=== PATIENT | female | born 1975 | race Caucasian/White ===

== ENCOUNTER 2017-03-24 16:15 | Inpatient (IN) | payer OTHER ==
[~2017-03-24] VITALS: Ht 165.1 cm; Wt 124.2 kg
[~2017-03-24 16:15] MED LIST: PREN-39 PO
--- NOTE | 2017-03-24 16:50 | NSTRPT ---
NST Information Datetime Report Generated by CPN: 03/24/2017 16:49 Datetime: 03/24/2017 14:42 NST Information EGA: 36.2 Test Number: 8 Time on Monitor: 03/24/2017 15:06 Time off Monitor: 03/24/2017 15:43 NST Duration (Min): 37 Reason for NST: Diabetes Mellitus; Other Reason for NST Other: A2DM Test and Monitor Explained: Monitor Explained; Test Explained; Verbalized Understanding Pulse: 78 Resp: 17 SBP: 114 DBP: 55 Test Evaluation NST Interventions: Reposition Patient Patient States Movement: Present Contraction Frequency: q3-5min FHR Baseline : 135 Variability: Moderate 6-25bpm Accelerations: 15X15 Decelerations: None FHR Category: Category I NST Results: Reactive Comments: pt to u/s, DONALD 12.9cm, cephalic FBS 90 Dr. Gomez called. new orders received. Send pt to OB-TRG for contractions. pain 02/27. 1 545- Pt to OB-TRG as ordered. Follow up NST appt. given. kick count instructions reviewed. pt states understanding. Electronically Signed By E-Signature: with User ID: [id number], Addendum/Amendment: Reactive FHTs Datetime: 03/21/2017 14:29 NST Information EGA: 35.6 NST Duration (Min): 22 Datetime: 03/17/2017 14:50 NST Information EGA: 35.2 NST Duration (Min): 30 Datetime: 03/14/2017 14:55 NST Information EGA: 34.6 NST Duration (Min): 28 Datetime: 03/10/2017 14:28 NST Information EGA: 34.2 NST Duration (Min): 30 Datetime: 03/07/2017 15:15 NST Information EGA: 33.6 NST Duration (Min): 30 Datetime: 03/03/2017 13:30 NST Information EGA: 33.2 NST Duration (Min): 21 Datetime: 02/28/2017 15:06 NST Information EGA: 32.6 Datetime: 02/28/2017 14:45 NST Duration (Min): 40
[2017-03-24 17:39] VITALS: BP 138/78; PULSE 78; RESP 18
[2017-03-24 17:40] VITALS: Ht 165.1 cm; Wt 124.2 kg
[2017-03-24] MEDS ORDERED: LACTATED RINGER'S 1,000 ML IV ONE (18:00)
[2017-03-24] MEDS ORDERED: FOLI1POW MC (19:09)
[2017-03-24] MEDS ORDERED: FERR325C PO (19:09)
[2017-03-24] MEDS ORDERED: CALC600T5 PO (19:09)
[2017-03-24] MEDS ORDERED: MTF1000T PO (19:12)
[2017-03-24] MEDS ORDERED: MISOPROSTOL 200 MCG TAB PR PRN (21:00)
[2017-03-24] MEDS ORDERED: CEFAZOLIN 2 GM/50 ML (PMX) 50 ML IV SCH (21:00)
[2017-03-24] MEDS ORDERED: METHYLERGONOVINE 0.2 MG INJ IM PRN (21:00)
[2017-03-24] MEDS ORDERED: CARBOPROST 250 MCG INJ IM PRN (21:00)
[2017-03-24] MEDS ORDERED: OXYTOCIN 30 UNITS/LR 500 ML IV SCH (21:00)
[2017-03-24] MEDS ORDERED: OXYTOCIN 30 UNITS/LR 500 ML IV PRN (21:00)
[2017-03-24] MEDS: LACTATED RINGER'S 1,000 ML IV SCH (21:18)
[2017-03-24 22:44] LABS: ADD SCAN DIFF NO
[2017-03-24 22:46] LABS: BASOPHILS % 0.4 % (0.0-2.0); EOSINOPHILS # 0.1 10^3/ul (0.0-0.5); EOSINOPHILS % 1.3 % (0.0-7.0); HEMATOCRIT 34.8 % (37.0-47.0); HEMOGLOBIN 11.6 g/dl (12.0-16.0); LYMPHOCYTES # 2.2 10^3/ul (0.8-2.9); LYMPHOCYTES % 22.5 % (15.0-51.0); MEAN CORPUSCULAR HEMOGLOBIN 30.4 pg (29.0-33.0); MEAN CORPUSCULAR HGB CONC 33.3 g/dl (32.0-37.0); MEAN CORPUSCULAR VOLUME 91.3 fl (82.0-101.0); MEAN PLATELET VOLUME 9.9 fl (7.4-10.4); MONOCYTE # 0.5 10^3/ul (0.3-0.9); NEUTROPHIL # 6.9 10^3/ul (1.6-7.5); NEUTROPHILS % 70.3 % (39.0-77.0); PLATELET COUNT 289 10^3/UL (140-415); RED BLOOD COUNT 3.81 10^6/ul (4.20-5.40); RED CELL DISTRIBUTION WIDTH 15.1 % (11.5-14.5); WHITE BLOOD COUNT 9.8 10^3/ul (4.8-10.8)
[2017-03-24 23:22] LABS: INR 0.95; PROTIME 12.7 Sec (12.2-14.2)
--- NOTE | 2017-03-24 23:22 | TRIAGE ---
OB Triage Datetime Report Generated by CPN: 03/24/2017 23:22 Datetime: 03/24/2017 21:10 Assessment Type: Admission Assessment Vaginal Bleeding: None Maternal Assessment Level of Consciousness: Fully Conscious DTR's/Clonus: DTRs 2+; No Clonus Headache: Denies Blurred Vision: No Respiratory Effort: Unlabored; Regular Rhythm; Equal Expansion Nausea/Vomiting: Denies RUQ Epigastric Pain: Denies Lower Extremities Edema: None (Annotations: OBESE PT.) Upper Extremities Edema: None Facial Edema: None Fall Risk Assessment History of Falling: (0) No Secondary Diagnosis: (0) No Ambulatory Aid: (0) Bedrest/Nurse Assist IV Therapy: (0) No Gait: (0) Normal/Bedrest/Immobile Mental Status: (0) Oriented to Own Ability Fall Score: 0 Fall Risk Score Definition: No Risk: No action required Pain Assessment Pain Scale: 2 Pain Presence: Intermittent Pain Type: Cramping Pain Location: Abdomen Pain Goal: 3 Membrane Status: Intact Datetime: 03/24/2017 18:40 Labor Evaluation Frequency: 1-3.5 Monitor Mode: External Duration (sec)2399: 40-120 Quality: Moderate Pattern: Normal: <= 5 Contractions in 10 Minutes Resting Tone [place]: Relaxed Heart Rate FHR Baseline Rate: 140 Monitor Mode: External US FHR Baseline Changes: No Baseline Change Variability: Moderate 6-25 bpm Accelerations: 15X15 Decelerations: None Category: Category I Pain Assessment Pain Scale: 2 Pain Presence: Intermittent Pain Type: Contraction; Pressure Pain Location: Abdomen; Back Pain Goal: 0 Pain Relief Measures: Comfort Measures Datetime: 03/24/2017 17:50 Vaginal Exam Dilatation (cms): 0.0 Effacement (%): 0 Station: -4 Exam By: Sruthi RN Datetime: 03/24/2017 17:40 Labor Evaluation Frequency: 1-4 Monitor Mode: External Duration (sec)2399: 40-120 Quality: Moderate Pattern: Normal: <= 5 Contractions in 10 Minutes Resting Tone [place]: Relaxed Heart Rate FHR Baseline Rate: 140 Monitor Mode: External US FHR Baseline Changes: No Baseline Change Variability: Moderate 6-25 bpm Accelerations: 15X15 Decelerations: None Category: Category I Pain Assessment Pain Scale: 2 Pain Presence: Intermittent Pain Type: Contraction; Pressure Pain Location: Abdomen; Back Pain Goal: 0 Pain Relief Measures: Comfort Measures Datetime: 03/24/2017 17:35 Time of Arrival: 03/24/2017 16:10 EGA: 36.2 Arrived By: Ambulatory Arrived From: Office Chief Complaint: UC Movement: Present Contractions: Regular Time Contractions Began: 03/24/2017 06:00 Rupture of Membranes: Denies Vaginal Bleeding: None Vaginal Discharge: Denies Recent Sexual Intercouse: Denies Abdominal Trauma: Not Applicable Patient Complaints: Contractions Time Provider Notified: 03/24/2017 17:33 Provider Notified: Delshad Initial Plan: NST, VE, IV Hydration Datetime: 03/24/2017 17:00 Assessment Type: Triage Maternal Assessment Level of Consciousness: Fully Conscious DTR's/Clonus: DTRs 2+; No Clonus Headache: Denies Blurred Vision: No Respiratory Effort: Unlabored; Regular Rhythm; Equal Expansion Breath Sounds, Left: Clear and Equal Breath Sounds, Right: Clear and Equal Nausea/Vomiting: Denies RUQ Epigastric Pain: Denies Lower Extremities Edema: Bilateral Lower Extremities Degree: 1+ Upper Extremities Edema: Bilateral Upper Extremities Degree: 1+ Facial Edema: None Fall Risk Assessment History of Falling: (0) No Secondary Diagnosis: (0) No Ambulatory Aid: (0) Bedrest/Nurse Assist IV Therapy: (0) No Gait: (0) Normal/Bedrest/Immobile Mental Status: (0) Oriented to Own Ability Fall Score: 0 Fall Risk Score Definition: No Risk: No action required Datetime: 03/24/2017 16:31 Stage of : OB Triage
[2017-03-24 23:23] LABS: PARTIAL THROMBOPLASTIN TIME 26.1 Sec (25.0-35.0)
[2017-03-25] MEDS ORDERED: ACETAMINOPHEN 325 MG TAB PO PRN
[2017-03-25] MEDS: DEXTROSE 5%-LR 1,000 ML IV SCH ×2 (02:54→04:46)
[2017-03-25] MEDS: LACTATED RINGER'S 1,000 ML IV SCH ×2 (08:15→12:46)
[2017-03-25] MEDS ORDERED: GLUCOSE GEL 15 GRAM TUBE PO PRN ×2 (16:00)
[2017-03-25] MEDS ORDERED: GLUCOSE GEL 15 GRAM TUBE BUCCAL PRN (16:00)
[2017-03-25] MEDS ORDERED: DEXTROSE 50% 50 ML SYRINGE IV PRN ×2 (16:00)
[2017-03-25] MEDS ORDERED: GLUCAGON 1 MG INJ IM PRN (16:00)
[2017-03-25] MEDS ORDERED: INSULIN ASPART [NOVOLOG] 3 ML PEN SC SCH (17:05)
[2017-03-25] MEDS ORDERED: ACCU-CHEK XX SCH (19:35)
[2017-03-25] MEDS ORDERED: metFORMIN (XR) 500 MG TAB PO SCH (21:00)
[2017-03-25] MEDS ORDERED: NPH, HUMAN INSULIN ISOPHANE 3ML VIAL SC SCH (21:00)
[2017-03-26] MEDS ORDERED: NPH, HUMAN INSULIN ISOPHANE 3ML VIAL SC ONE (07:05)
[2017-03-26] MEDS ORDERED: INSULIN ASPART [NOVOLOG] 3 ML PEN SC SCH (07:05)
== END 2017-03-25 20:20 | disposition home or self-care (01) | DRG 781 ==
LOC: OBT 16:15 → L-D 16:16 → OBT 20:51 → L-D 20:53
PROVIDERS: ADMIT Obstetrics & Gynecology; ATTEND Obstetrics & Gynecology
PROC: 4A1HX4Z Monitoring of Products of Conception, Cardiac Electrical Activity, External Approach (ICD-10-PCS; principal; 2017-03-25)
DX: O24.414 Gestational diabetes mellitus in pregnancy, insulin controlled (principal); Z3A.36 36 weeks gestation of pregnancy
CPT/HCPCS: 36415; 82962; 85025; 85610; 85730; 86592; 86850; 86900; 86901; 87340; 96360; 96361; G0463; J0690; J1815; J7120; J7121

== ENCOUNTER 2017-04-12 05:00 | Inpatient (IN) | payer OTHER ==
[~2017-04-12] VITALS: Ht 165.1 cm; Wt 125.0 kg
[~2017-04-12 05:00] MED LIST changes: +CALC600T5 PO; +FERR325C PO; +FOLI1POW MC; +MTF1000T PO
[2017-04-12] MEDS ORDERED: METHYLERGONOVINE 0.2 MG INJ IM PRN ×2 (05:30→13:30)
[2017-04-12] MEDS ORDERED: OXYTOCIN 30 UNITS/LR 500 ML IV SCH (05:30)
[2017-04-12] MEDS ORDERED: OXYTOCIN 30 UNITS/LR 500 ML IV PRN ×2 (05:30→13:30)
[2017-04-12] MEDS ORDERED: MISOPROSTOL 200 MCG TAB PR PRN ×2 (05:30→13:30)
[2017-04-12] MEDS ORDERED: CARBOPROST 250 MCG INJ IM PRN ×2 (05:30→13:30)
[2017-04-12 05:34] VITALS: Ht 165.1 cm; Wt 125.0 kg
[2017-04-12 05:44] VITALS: BP 130/60; PULSE 67; RESP 18
[2017-04-12 06:04] LABS: ADD SCAN DIFF NO
[2017-04-12] MEDS: LACTATED RINGER'S 1,000 ML IV SCH ×4 (06:05→21:04)
[2017-04-12 06:11] LABS: BASOPHILS % 0.4 % (0.0-2.0); EOSINOPHILS # 0.1 10^3/ul (0.0-0.5); EOSINOPHILS % 1.7 % (0.0-7.0); HEMATOCRIT 37.5 % (37.0-47.0); HEMOGLOBIN 12.3 g/dl (12.0-16.0); LYMPHOCYTES # 1.8 10^3/ul (0.8-2.9); LYMPHOCYTES % 25.2 % (15.0-51.0); MEAN CORPUSCULAR HEMOGLOBIN 30.3 pg (29.0-33.0); MEAN CORPUSCULAR HGB CONC 32.8 g/dl (32.0-37.0); MEAN CORPUSCULAR VOLUME 92.4 fl (82.0-101.0); MONOCYTE # 0.5 10^3/ul (0.3-0.9); MONOCYTES % 6.8 % (0.0-11.0); NEUTROPHIL # 4.7 10^3/ul (1.6-7.5); NEUTROPHILS % 65.3 % (39.0-77.0); PLATELET COUNT 290 10^3/UL (140-415); RED BLOOD COUNT 4.06 10^6/ul (4.20-5.40); RED CELL DISTRIBUTION WIDTH 14.9 % (11.5-14.5); WHITE BLOOD COUNT 7.2 10^3/ul (4.8-10.8)
[2017-04-12 06:45] LABS: INR 0.92; PROTIME 12.4 Sec (12.2-14.2)
[2017-04-12 06:46] LABS: PARTIAL THROMBOPLASTIN TIME 27.1 Sec (25.0-35.0)
[2017-04-12] MEDS ORDERED: morphine SULFATE/PF (10 MG/10 ML) INJ ONE (07:28)
[2017-04-12] MEDS ORDERED: EPHEDrine SULFATE 50 MG/5 ML SYG ONE (07:28)
[2017-04-12] MEDS ORDERED: FENTAnyl 50 MCG/ML VIAL ONE (07:28)
[2017-04-12] MEDS ORDERED: PHENYLephrine (100 MCG/ML) 5ML SYG ONE (07:28)
[2017-04-12] MEDS: CEFAZOLIN 2 GM/50 ML (PMX) 50 ML IV SCH ×2 (07:36→08:43)
[2017-04-12] MEDS ORDERED: ONDANSETRON 4 MG INJ ONE (07:53)
--- NOTE | 2017-04-12 08:02 | PREOPHP ---
DATE OF ADMISSION: 04/12/2017 HISTORY OF PRESENT ILLNESS: A 42-year-old female, 2, para 1, estimated date of delivery , at 39 weeks' gestation is admitted for repeat section. The patient also desires b ilateral tubal ligation. PAST MEDICAL HISTORY: Diabetes. PAST SURGICAL HISTORY: section. ALLERGIES: NO KNOWN ALLERGIES. FAMILY HISTORY: Diabetes. PHYSICAL EXAMINATION: VITAL SIGNS: The patient is afebrile. Vital signs stable. HEAD, NECK, AND CHEST: Within normal limits. ABDOMEN: Soft, nontender, and gravid. EXTREMITIES: Within normal limits. NEUROLOGIC: Within normal limits. IMPRESSION: at 39 weeks with previous section and insulin-dependent diabetes. V oluntary sterilization. PLAN: Delivery by repeat section and bilateral tubal ligation. Risks, benefits, and alter natives of the procedure were explained to the patient. The patient has been counseled about all of her contraceptive options. It was explained to the patient that with bilateral tubal ligation ther e is a chance of failure resulting in ectopic and/or intrauterine . After counsshine oliveira, the patient said she understood and gave informed consent for the procedure. Dictated By: JENNY LEONARD/TOPHER Conf#: [id number] DID#: [id number]
[2017-04-12] MEDS ORDERED: NALOXONE (0.4 MG/ML) INJ IV PRN (08:30)
[2017-04-12] MEDS ORDERED: HYDROmorphONE 1 MG/ML SYG IV PRN ×2 (08:30)
[2017-04-12] MEDS ORDERED: DIPHENHYDRAMINE 50 MG INJ IV PRN (08:30)
[2017-04-12] MEDS ORDERED: ONDANSETRON 4 MG INJ IV PRN (08:30)
[2017-04-12] MEDS ORDERED: PROCHLORPERAZINE 10 MG INJ IV PRN (08:30)
[2017-04-12] MEDS: KETOROLAC 30 MG INJ IV PRN ×2 (10:32→23:30)
--- NOTE | 2017-04-12 11:26 | OPR ---
DATE OF OPERATION: 04/12/2017 PREOPERATIVE DIAGNOSES: 1. at 39 weeks with insulin-dependent diabetes, previous section. 2. Voluntary sterilization. POSTOPERATIVE DIAGNOSES: 1. at 39 weeks with insulin-dependent diabetes, previous . 2. Voluntary sterilization. 3. Pelvic adhesions. OPERATION: Repeat low transverse section, lysis of adhesions, bilateral tubal ligation. SURGEON: Dr. Gomez CRANE LADLE PERSON: Dr. Marlena Pickens ANESTHESIA: Spinal. ANESTHESIOLOGIST: Dr. Santos PROCEDURE: The patient was taken to the operating room, and placed on the operating table. After s uccessful spinal anesthesia was given, the patient was placed in supine position. The area was prep ared and draped in the usual sterile fashion. Spinal anesthesia was tested and was satisfactory. U sing a scalpel, Pfannenstiel incision was made about 2 fingerbreadths above the symphysis pubis. Th e incision was carried to the fascia. The fascia was incised and extended bilaterally with Rueda sci ssors. Two Kochers were used to separate the fascia from the muscle. The muscle was dissected down to peritoneum. The peritoneum was secured with 2 Kellys and incised with Metzenbaum scissors. Usi ng a scalpel, a small transverse incision was made in the lower segment of the uterus. Upon enterin g the uterine cavity, bandage scissors were inserted to extend the incision bilaterally, curved up. Baby was delivered from cephalic presentation. After suctioning clear of amniotic fluid, the baby w as handed off to the team in attendance. Apgars were 9 and 9. The placenta was delivered without difficulty. Uterus was closed with #1 Monocryl continuous locked. After assuring hemostasi s, both ovaries and tubes were inspected. The left fallopian tube was adherent to the lateral side of the uterus from the patient's previous surgery. In order to perform the bilateral tubal ligation safely, using Bovie, sharp lysis of adhesions was performed. The right fallopian tube was grasped with a [place] clamp. Using 0 plain suture ligature, a 5 cm segment of the right fallopian tube was doubly ligated. Using Metzenbaum scissors, a portion of the right fallopian tube above the ligated area was excised and sent to pathology. Same procedure was repeated on the left fallopian tube. A fter assuring hemostasis, the peritoneum was secured with warm saline. The peritoneum was closed wi th 2-0 Vicryl continuous. The fascia was closed with #1 Vicryl continuous in 2 segments. Subcutane ous tissue was reapproximated with 2-0 plain. The skin was closed with cassandra. ESTIMATED BLOOD LOSS: 500 mL. COMPLICATIONS: None. COUNTS: All counts were correct. Dictated By: JENNY LEONARD/TOPHER Conf#: [id number] DID#: [id number]
--- NOTE | 2017-04-12 11:56 | CONS ---
Date/Time of Note Date/Time of Note DATE: 04/12/17 TIME: 11:45 Assessment/Plan Assessment/Plan Problems: (1) Diabetes mellitus type 2 in obese Status: Chronic Comment: She will be placed on her metformin and will be using an insulin- based protocol briefly. Her insulin resistance will go drip go down drastically after delivery. She will need to be on some type of medication and we will work toward stable discharge protocol for her. Please note we do not know of any diabetic complications in this young lady. Given that she is planning to breast-feed her usage of medication will be tempered temporarily (2) Obesity Status: Chronic Comment: Counseled and she will need a calorie restriction diet when she is taking p.o. after the Qualifiers: (3) Migraine syndrome Status: Chronic Comment: Noted. (4) Hyperlipidemia associated with type 2 diabetes mellitus Status: Chronic Comment: Noted. She cannot be on statin therapy around the time of as is not approved in nor in breast-feeding (5) Status post delivery Status: Acute Comment: She is merely postop our colleagues in gynecology and obstetrics will be a managing Consultation Date/Type/Reason Admit Date/Time April 12, 2017 at 05:00 Date of Consultation: April 12, 2017 Type of Consultation: Endocrinology Reason for Consultation Diabetes mellitus type 2 Referring Provider: JENNY PASCAL MD Hx of Present Illness Charming 42-year-old Ab0 female who is immediately post . She has delivered a healthy male child. She has a history of diabetes dating back 7 years. Her last eye check was roughly 2 years ago. She denies any known retinopathy nephropathy cardiovascular disease cerebrovascular disease peripheral vascular disease or any type of neuropathy. She is normally managed by her primary care team at [facility]. Constitutional: no complaints (No fevers chills or sweats) Eyes: no complaints ENT: no complaints Respiratory: no complaints Cardiovascular: no complaints Gastrointestinal: no complaints, other (Please note some abdominal pain and she is immediately post ) Genitourinary: no complaints Musculoskeletal: no complaints Skin: no complaints Neurologic: no complaints Endocrine: no complaints, other (The degree of her control has been variable) Lymphatic: no complaints Past Medical History Migraine syndrome; obesity; nonalcoholic fatty liver disease Her prepregnancy medications were aspirin 81 mg daily lisinopril 10 mg a metformin 1 g twice daily atorvastatin 10 mg a day and glipizide 5 mg once a day ; during she was on metformin vitamins and insulin type undefined Medical History: diabetes (Diabetes mellitus type 2), high cholesterol Past Surgical History Status post 2 Past Surgical Hx: cholecystectomy Family History Significant Family History: diabetes, hypertension Social History Alcohol Use: none Smoking Status: Former smoker (Quit 2011) Drug Use: none Other Social History Born in [facility] till the age of 7 in [facility] high school education without experience has worked in [employer]. 9 years lives with spouse daughter 2 dogs; and 3 pet birds Exam/Review of Systems Vital Signs Vitals Vital Signs Date Time Temp Pulse Resp B/P Pulse Ox O2 Delivery O2 Flow Rate FiO2 04/12/17 05:44 98.5 67 18 130/60 Room Air Intake and Output 04/11/17 04/11/17 04/12/17 15:00 23:00 07:00 Intake Total 1000 ml Balance 1000 ml Exam Constitutional: alert, oriented Head: atraumatic, normocephalic Eyes: EOMI, nl conjunctiva, nl lids, nl sclera, other ENMT: mucosa pink and moist, nl external ears & nose, nl lips & teeth, nl nasal mucosa & septum Neck: non-tender, supple Respiratory: clear to auscultation, normal air movement Cardiovascular: nl pulses, regular rate and rhythm Gastrointestinal: soft Musculoskeletal: nl extremities to inspection, nl gait and stance Extremities: normal pulses Results Result Diagram: 04/12/17 0536 04/12/17 0536 Results 24 hrs Laboratory Tests Test 04/12/17 05:36 04/12/17 07:22 White Blood Count 7.2 # Red Blood Count 4.06 L Hemoglobin 12.3 Hematocrit 37.5 Mean Corpuscular Volume 92.4 Mean Corpuscular Hemoglobin 30.3 Mean Corpuscular Hemoglobin Concent 32.8 Red Cell Distribution Width 14.9 H Platelet Count 290 Mean Platelet Volume 10.0 Neutrophils % 65.3 Lymphocytes % 25.2 Monocytes % 6.8 Eosinophils % 1.7 Basophils % 0.4 Nucleated Red Blood Cells % 0.0 Neutrophils # 4.7 Lymphocytes # 1.8 Monocytes # 0.5 Eosinophils # 0.1 Basophils # 0.0 Nucleated Red Blood Cells # 0.0 Prothrombin Time 12.4 Prothrombin Time Ratio 1.0 INR International Normalized Ratio 0.92 Activated Partial Thromboplast Time 27.1 Glucose Level 100 Hepatitis B Surface Antigen NEGATIVE Bedside Glucose 97 Medications Medications Current Medications Cefazolin Sodium/ Dextrose 50 ml @ 100 mls/hr ONCE IV Last administered on 07:36; Admin Dose 100 MLS/HR; Start 04/12/17 at 05:30 Oxytocin/Lactated Ringer's 500 ml @ 125 mls/hr ONCE IV ; Start 04/12/17 at 05: 30 Oxytocin/Lactated Ringer's 500 ml @ 0 mls/hr ONCE PRN IV For Hemorrhage Management; Start 04/12/17 at 05:30 Methylergonovine Maleate (Methergine) 0.2 mg ONCE PRN IM VAGINAL BLEEDING; Start 04/12/17 at 05:30 Carboprost Tromethamine (Hemabate) 250 mcg ONCE PRN IM VAGINAL BLEEDING; Start 04/12/17 at 05:30 Misoprostol 1000 mcg 1,000 mcg ONCE PRN [place] VAGINAL BLEEDING; Start 04/12/17 at 05:30 Lactated Ringer's (Lr) 1,000 ml @ 125 mls/hr Q8H IV Last administered on 06:59; Admin Dose 125 MLS/HR; Start 04/12/17 at 06:02 Naloxone HCl (Narcan) 0.1 mg Q2M PRN IV FOR RESP RATE 8 OR LESS; Start at 08:30; Stop 04/13/17 at 08:29 Ketorolac Tromethamine (Toradol) 30 mg Q6H PRN IV PAIN Last administered on 10:32; Admin Dose 30 MG; Start 04/12/17 at 08:30; Stop 04/13/17 at 08:29 Hydromorphone HCl (Dilaudid) 0.2 mg Q3H PRN IV PAIN LEVEL 1-5; Start 04/12/17 at 08:30; Stop 04/13/17 at 08:29 Hydromorphone HCl (Dilaudid) 0.4 mg Q3H PRN IV PAIN LEVEL 6-10; Start 04/12/17 at 08:30; Stop 04/13/17 at 08:29 Diphenhydramine HCl (Benadryl) 25 mg Q6H PRN IV ITCHING; Start 04/12/17 at 08: 30; Stop 04/13/17 at 08:29 Ondansetron HCl (Zofran Inj) 4 mg Q6H PRN IV NAUSEA AND/OR VOMITING; Start at 08:30; Stop 04/13/17 at 08:29 Prochlorperazine (Compazine Inj) 10 mg ONCE PRN IV NAUSEA AND/OR VOMITING; Start 04/12/17 at 08:30; Stop 04/13/17 at 08:29 FRANCIA VARMA MD April 12, 2017 11:56
[2017-04-12 12:17] LABS: IRON 67 ug/dl (35-150)
[2017-04-12 12:26] LABS: TOTAL IRON BINDING CAPACITY 450 ug/dl (241-421)
[2017-04-12 12:30] VITALS: BP 107/46; PULSE 55; RESP 17
[2017-04-12] MEDS ORDERED: GLUCOSE GEL 15 GRAM TUBE PO PRN ×2 (12:30)
[2017-04-12] MEDS ORDERED: GLUCOSE GEL 15 GRAM TUBE BUCCAL PRN (12:30)
[2017-04-12] MEDS ORDERED: GLUCAGON 1 MG INJ IM PRN (12:30)
[2017-04-12] MEDS ORDERED: DEXTROSE 50% 50 ML SYRINGE IV PRN ×2 (12:30)
[2017-04-12 12:53] LABS: FERRITIN 30.9 ng/ml (6.2-137.0)
[2017-04-12 13:00] VITALS: BP 117/48; PULSE 53; RESP 16
[2017-04-12] MEDS: OXYTOCIN 30 UNITS/LR 500 ML IV SCH ×3 (13:04→20:15)
[2017-04-12] MEDS ORDERED: OXYCODONE/ACETAMINOPHEN (5/325) TAB PO PRN (13:30)
[2017-04-12] MEDS ORDERED: LANOLIN 7 GM TUBE TOP PRN (13:30)
[2017-04-12] MEDS: ACCU-CHEK XX SCH ×2 (13:50→20:05)
[2017-04-12 14:00] VITALS: BP 110/47; PULSE 54; RESP 18
[2017-04-12 16:00] VITALS: BP 102/45; PULSE 57; RESP 18
[2017-04-12] MEDS: metFORMIN 500 MG TAB PO SCH (17:50)
[2017-04-12] MEDS: INSULIN ASPART [NOVOLOG] 3 ML PEN SC SCH ×2 (18:05→21:00)
[2017-04-12 19:40] VITALS: BP 112/55; PULSE 60; RESP 18
[2017-04-12] MEDS: INSULIN GLARGINE [LANtus] 3 ML PEN SC SCH (20:00)
[2017-04-12] MEDS: SENNA/DOCUSATE NA (8.6MG/50MG) TAB PO SCH (20:13)
[2017-04-13] VITALS: BP 111/60; PULSE 68; RESP 18
[2017-04-13] MEDS: LACTATED RINGER'S 1,000 ML IV SCH ×3 (00:43→21:04)
[2017-04-13] MEDS ORDERED: ACCU-CHEK XX SCH (02:00)
[2017-04-13] MEDS: ACCU-CHEK XX SCH ×4 (02:00→20:31)
[2017-04-13 04:10] VITALS: BP 110/55; PULSE 70; RESP 18
[2017-04-13] MEDS: INSULIN ASPART [NOVOLOG] 3 ML PEN SC SCH ×4 (08:05→21:07)
[2017-04-13 08:09] LABS: ADD SCAN DIFF NO
[2017-04-13 08:13] LABS: BASOPHILS % 0.3 % (0.0-2.0); EOSINOPHILS # 0.2 10^3/ul (0.0-0.5); EOSINOPHILS % 1.9 % (0.0-7.0); HEMATOCRIT 34.6 % (37.0-47.0); HEMOGLOBIN 11.4 g/dl (12.0-16.0); LYMPHOCYTES # 1.3 10^3/ul (0.8-2.9); LYMPHOCYTES % 16.2 % (15.0-51.0); MEAN CORPUSCULAR HEMOGLOBIN 30.5 pg (29.0-33.0); MEAN CORPUSCULAR HGB CONC 32.9 g/dl (32.0-37.0); MEAN CORPUSCULAR VOLUME 92.5 fl (82.0-101.0); MEAN PLATELET VOLUME 9.6 fl (7.4-10.4); MONOCYTE # 0.4 10^3/ul (0.3-0.9); MONOCYTES % 4.9 % (0.0-11.0); NEUTROPHIL # 6.1 10^3/ul (1.6-7.5); NEUTROPHILS % 76.3 % (39.0-77.0); PLATELET COUNT 231 10^3/UL (140-415); RED BLOOD COUNT 3.74 10^6/ul (4.20-5.40); RED CELL DISTRIBUTION WIDTH 14.8 % (11.5-14.5)
[2017-04-13 08:21] VITALS: BP 115/56; PULSE 76; RESP 18
[2017-04-13] MEDS: KETOROLAC 30 MG INJ IV PRN (08:21)
[2017-04-13] MEDS: metFORMIN 500 MG TAB PO SCH ×2 (08:39→17:49)
[2017-04-13] MEDS: SENNA/DOCUSATE NA (8.6MG/50MG) TAB PO SCH ×2 (08:39→21:07)
[2017-04-13] MEDS: INSULIN GLARGINE [LANtus] 3 ML PEN SC SCH ×2 (08:41→20:19)
--- NOTE | 2017-04-13 13:15 | CONS ---
Date/Time of Note Date/Time of Note DATE: 04/13/17 TIME: 13:13 Assessment/Plan Assessment/Plan Chief Complaint/Hosp Course Yue 42-year-old Ab0 female who is immediately post . She has delivered a healthy male child. She has a history of diabetes dating back 7 years. Her last eye check was roughly 2 years ago. She denies any known retinopathy nephropathy cardiovascular disease cerebrovascular disease peripheral vascular disease or any type of neuropathy. She is normally managed by her primary care team at [facility]. Problems: (1) Diabetes mellitus type 2 in obese Status: Chronic Comment: Was my estimation the patient will require some degree of insulin . We are using insulin as the patient is rest feeding the child. Blood sugar control is been excellent and she has not had hypoglycemia. I suspect that insulin needs will rise mildly in the next few days to weeks. Ultimately weight loss protocol will be of enormous benefit for the patient and her metabolic parameters (2) Migraine syndrome Status: Chronic Comment: Noted. No medical intervention at this time especially is breast- feeding (3) Hyperlipidemia associated with type 2 diabetes mellitus Status: Chronic Comment: Noted. No medication intervention at this time as patient is breast- feeding Consultation Date/Type/Reason Admit Date/Time April 12, 2017 at 05:00 Initial Consult Date 04/12/17 Type of Consultation: Endocrinology Reason for Consultation Diabetes mellitus type 2 and patient is now immediately . Maternal- medicine has signed off the case due to delivery Referring Provider: JENNY PASCAL MD 24 HR Interval Summary Free Text/Dictation No complaints of hypoglycemia no complaints Exam/Review of Systems Vital Signs Vitals Vital Signs Date Time Temp Pulse Resp B/P Pulse Ox O2 Delivery O2 Flow Rate FiO2 04/13/17 08:21 98.3 76 18 115/56 Room Air 04/12/17 19:40 98 Intake and Output 04/12/17 04/12/17 04/13/17 14:59 22:59 06:59 Intake Total 1300 ml 867 ml 1250 ml Output Total 1250 ml 300 ml 950 ml Balance 50 ml 567 ml 300 ml Exam Constitutional: alert, oriented Head: atraumatic, normocephalic Neck: non-tender, supple Respiratory: clear to auscultation, normal air movement Cardiovascular: nl pulses, regular rate and rhythm Neurological: nl mental status, nl speech, nl strength Skin: No rash or lesions Results Result Diagram: 04/13/17 0730 04/12/17 0536 Results 24 hrs Laboratory Tests Test 04/12/17 21:26 04/13/17 07:30 04/13/17 07:52 04/13/17 10:40 Bedside Glucose 82 90 156 White Blood Count 8.0 Red Blood Count 3.74 L Hemoglobin 11.4 L Hematocrit 34.6 L Mean Corpuscular Volume 92.5 Mean Corpuscular Hemoglobin 30.5 Mean Corpuscular Hemoglobin Concent 32.9 Red Cell Distribution Width 14.8 H Platelet Count 231 # Mean Platelet Volume 9.6 Neutrophils % 76.3 Lymphocytes % 16.2 Monocytes % 4.9 Eosinophils % 1.9 Basophils % 0.3 Nucleated Red Blood Cells % 0.0 Neutrophils # 6.1 Lymphocytes # 1.3 Monocytes # 0.4 Eosinophils # 0.2 Basophils # 0.0 Nucleated Red Blood Cells # 0.0 Test 04/13/17 12:34 Bedside Glucose 105 Medications Medications Current Medications Insulin Glargine (Lantus) 8 unit BID@08,20 SC Last administered on 04/13/17t 08 :41; Admin Dose 8 UNIT; Start 04/12/17 at 20:00 Diagnostic Test (Pha) (Accu-Chek) 1 ea 02 XX ; Start 04/13/17 at 02:00 Miscellaneous Information 1 ea NOTE XX ; Start 04/12/17 at 12:30 Glucose (Glutose) 15 gm Q15M PRN PO DECREASED GLUCOSE; Start 04/12/17 at 12:30 Glucose (Glutose) 22.5 gm Q15M PRN PO DECREASED GLUCOSE; Start 04/12/17 at 12: 30 Dextrose (D50w Syringe) 25 ml Q15M PRN IV DECREASED GLUCOSE; Start 04/12/17 at 12:30 Dextrose (D50w Syringe) 50 ml Q15M PRN IV DECREASED GLUCOSE; Start 04/12/17 at 12:30 Glucagon (Glucagen) 1 mg Q15M PRN IM DECREASED GLUCOSE; Start 04/12/17 at 12:30 Glucose 15 gm 15 gm Q15M PRN BUCCAL DECREASED GLUCOSE; Start 04/12/17 at 12:30 Lactated Ringer's (Lr) 1,000 ml @ 125 mls/hr Q8H IV Last administered on 00:43; Admin Dose 125 MLS/HR; Start 04/12/17 at 13:04 Oxycodone/ Acetaminophen (Percocet (5/ 325)) 1 tab Q4H PRN PO PAIN LEVEL 4-6; Start 04/12/17 at 13:30 Oxycodone/ Acetaminophen (Percocet (5/ 325)) 2 tab Q4H PRN PO PAIN LEVEL 7-10; Start 04/12/17 at 13:30 Ibuprofen (Motrin) 800 mg Q8 PO ; Start 04/13/17 at 14:00 Simethicone (Mylicon) 160 mg Q8H PRN PO DISTENSION/GAS/BLOATING; Start at 13:30 Senna/Docusate Sodium (Senokot-S) 1 tab BID PO Last administered on 04/13/17 08:39; Admin Dose 1 TAB; Start 04/12/17 at 21:00 Diphtheria/ Tetanus/Acell Pertussis 0.5 ml 0.5 ml ONCE ONCE IM* ; Start at 09:00; Stop 04/15/17 at 09:01 Oxytocin/Lactated Ringer's 500 ml @ 0 mls/hr ONCE PRN IV For Hemorrhage Management; Start 04/12/17 at 13:30 Methylergonovine Maleate (Methergine) 0.2 mg ONCE PRN IM VAGINAL BLEEDING; Start 04/12/17 at 13:30 Carboprost Tromethamine (Hemabate) 250 mcg ONCE PRN IM VAGINAL BLEEDING; Start 04/12/17 at 13:30 Misoprostol (Cytotec) 1,000 mcg ONCE PRN [place] VAGINAL BLEEDING; Start 04/12/17 at 13:30 FRANCIA VARMA MD April 13, 2017 13:15
[2017-04-13] MEDS: IBUPROFEN 800 MG TAB PO SCH ×2 (13:51→22:08)
[2017-04-13 16:00] VITALS: BP 125/57; PULSE 84; RESP 18
--- NOTE | 2017-04-13 18:27 | QN ---
Documentation Comment No complaint Afebrile VSS Abdomen soft POD #1 stable Continue post op care. DM management per Endocrinology. JENNY PASCAL MD April 13, 2017 18:27
[2017-04-13 20:00] VITALS: BP 135/65; PULSE 77; RESP 18
[2017-04-14] MEDS: OXYCODONE/ACETAMINOPHEN (5/325) TAB PO PRN ×2 (00:06→13:02)
[2017-04-14] MEDS: ACCU-CHEK XX SCH ×4 (01:59→20:05)
[2017-04-14 03:30] VITALS: BP 100/60; PULSE 70; RESP 20
[2017-04-14] MEDS: LACTATED RINGER'S 1,000 ML IV SCH ×2 (05:04→13:04)
[2017-04-14] MEDS: IBUPROFEN 800 MG TAB PO SCH ×3 (05:33→22:14)
[2017-04-14 08:00] VITALS: BP 110/57; PULSE 70; RESP 18
[2017-04-14] MEDS: INSULIN ASPART [NOVOLOG] 3 ML PEN SC SCH ×4 (08:07→21:00)
[2017-04-14] MEDS: INSULIN GLARGINE [LANtus] 3 ML PEN SC SCH ×2 (08:24→20:43)
[2017-04-14] MEDS: metFORMIN 500 MG TAB PO SCH ×2 (08:33→18:53)
[2017-04-14] MEDS: SENNA/DOCUSATE NA (8.6MG/50MG) TAB PO SCH ×2 (09:00→20:49)
--- NOTE | 2017-04-14 14:09 | CONS ---
Date/Time of Note Date/Time of Note DATE: 04/14/17 TIME: 14:08 Assessment/Plan Assessment/Plan Chief Complaint/Hosp Course Yue 42-year-old Ab0 female who is immediately post . She has delivered a healthy male child. She has a history of diabetes dating back 7 years. Her last eye check was roughly 2 years ago. She denies any known retinopathy nephropathy cardiovascular disease cerebrovascular disease peripheral vascular disease or any type of neuropathy. She is normally managed by her primary care team at [facility]. Problems: (1) Diabetes mellitus type 2 in obese Status: Chronic Comment: On current medication regimen using sensitizing drug and low-dose insulin the patient is tolerating this well and is euglycemic. She will need to be watched carefully for the development of increasing hyperglycemia in the next 12 weeks. Please note if the patient does successfully go through weight loss protocol that will amend that caution. For now she should be continued on this regimen and is stable from an endocrine standpoint for discharge as per our colleagues in obstetrics Consultation Date/Type/Reason Admit Date/Time April 12, 2017 at 05:00 Initial Consult Date 04/12/17 Type of Consultation: Endocrinology Reason for Consultation Impaired glucose tolerance-insulin resistance syndrome gestational. Referring Provider: JENNY PASCAL MD 24 HR Interval Summary Free Text/Dictation No changes no hypoglycemia Exam/Review of Systems Vital Signs Vitals Vital Signs Date Time Temp Pulse Resp B/P Pulse Ox O2 Delivery O2 Flow Rate FiO2 04/14/17 08:00 98.9 70 18 110/57 Room Air 04/12/17 19:40 98 Intake and Output 04/13/17 04/13/17 04/14/17 15:00 23:00 07:00 Intake Total 1320 ml Output Total 2100 ml 600 ml Balance -780 ml -600 ml Exam No changes Constitutional: alert, oriented Results Result Diagram: 04/13/17 0730 04/12/17 0536 Results 24 hrs Laboratory Tests Test 04/13/17 14:52 04/13/17 17:39 04/13/17 20:14 04/14/17 01:59 Bedside Glucose 108 106 149 128 Test 04/14/17 08:07 04/14/17 10:32 04/14/17 12:41 Bedside Glucose 86 105 98 Medications Medications Current Medications Insulin Glargine (Lantus) 8 unit BID@08,20 SC Last administered on 04/14/17 08 :24; Admin Dose 8 UNIT; Start 04/12/17 at 20:00 Diagnostic Test (Pha) (Accu-Chek) 1 ea 02 XX Last administered on 04/14/17 01: 59; Admin Dose 1 EA; Start 04/13/17 at 02:00 Miscellaneous Information 1 ea NOTE XX ; Start 04/12/17 at 12:30 Glucose (Glutose) 15 gm Q15M PRN PO DECREASED GLUCOSE; Start 04/12/17 at 12:30 Glucose (Glutose) 22.5 gm Q15M PRN PO DECREASED GLUCOSE; Start 04/12/17 at 12: 30 Dextrose (D50w Syringe) 25 ml Q15M PRN IV DECREASED GLUCOSE; Start 04/12/17 at 12:30 Dextrose (D50w Syringe) 50 ml Q15M PRN IV DECREASED GLUCOSE; Start 04/12/17 at 12:30 Glucagon (Glucagen) 1 mg Q15M PRN IM DECREASED GLUCOSE; Start 04/12/17 at 12:30 Glucose 15 gm 15 gm Q15M PRN BUCCAL DECREASED GLUCOSE; Start 04/12/17 at 12:30 Lactated Ringer's (Lr) 1,000 ml @ 125 mls/hr Q8H IV Last administered on 00:43; Admin Dose 125 MLS/HR; Start 04/12/17 at 13:04 Oxycodone/ Acetaminophen (Percocet (5/ 325)) 1 tab Q4H PRN PO PAIN LEVEL 4-6; Start 04/12/17 at 13:30 Oxycodone/ Acetaminophen (Percocet (5/ 325)) 2 tab Q4H PRN PO PAIN LEVEL 7-10 Last administered on 04/14/17 13:02; Admin Dose 2 TAB; Start 04/12/17 at 13:30 Ibuprofen (Motrin) 800 mg Q8 PO Last administered on 04/14/17 05:33; Admin Dose 800 MG; Start 04/13/17 at 14:00 Simethicone (Mylicon) 160 mg Q8H PRN PO DISTENSION/GAS/BLOATING; Start at 13:30 Senna/Docusate Sodium (Senokot-S) 1 tab BID PO Last administered on 04/13/17t 21:07; Admin Dose 1 TAB; Start 04/12/17 at 21:00 Diphtheria/ Tetanus/Acell Pertussis 0.5 ml 0.5 ml ONCE ONCE IM* ; Start at 09:00; Stop 04/15/17 at 09:01 Oxytocin/Lactated Ringer's 500 ml @ 0 mls/hr ONCE PRN IV For Hemorrhage Management; Start 04/12/17 at 13:30 Methylergonovine Maleate (Methergine) 0.2 mg ONCE PRN IM VAGINAL BLEEDING; Start 04/12/17 at 13:30 Carboprost Tromethamine (Hemabate) 250 mcg ONCE PRN IM VAGINAL BLEEDING; Start 04/12/17 at 13:30 Misoprostol (Cytotec) 1,000 mcg ONCE PRN [place] VAGINAL BLEEDING; Start 04/12/17 at 13:30 FRANCIA VARMA MD April 14, 2017 14:09
[2017-04-14 16:00] VITALS: BP 118/68; PULSE 74; RESP 18
[2017-04-14 20:05] VITALS: BP 117/58; PULSE 69; RESP 18
--- NOTE | 2017-04-14 21:11 | QN ---
Documentation Comment No cpmplaint Afebrile VSS Abdomen soft POD# 2 Stable Continue present care. JENNY PASCAL MD April 14, 2017 21:11
[2017-04-15] MEDS: OXYCODONE/ACETAMINOPHEN (5/325) TAB PO PRN (03:13)
[2017-04-15 04:05] VITALS: BP 111/57; PULSE 68; RESP 18
[2017-04-15] MEDS: IBUPROFEN 800 MG TAB PO SCH ×2 (05:39→15:46)
[2017-04-15 08:10] VITALS: BP 128/78; PULSE 67; RESP 14
[2017-04-15] MEDS: SENNA/DOCUSATE NA (8.6MG/50MG) TAB PO SCH (08:56)
[2017-04-15] MEDS: metFORMIN 500 MG TAB PO SCH (08:57)
[2017-04-15] MEDS ORDERED: DIPHTH/TET/ACEL PERTUSS (ADULT) 0.5 ML VIAL IM* ONE (09:00)
[2017-04-15] MEDS: INSULIN GLARGINE [LANtus] 3 ML PEN SC SCH (09:46)
--- NOTE | 2017-04-15 11:13 | CONS ---
Date/Time of Note Date/Time of Note DATE: 04/15/17 TIME: 11:11 Assessment/Plan Assessment/Plan Problems: (1) Diabetes mellitus type 2 in obese Status: Chronic Comment: Excellent glycemic control on current regimen. Would cont. this regimen on d/c. F/u w/ regular care after d/c. Ok for d/c from endo standpoint. Consultation Date/Type/Reason Admit Date/Time April 12, 2017 at 05:00 Initial Consult Date 04/12/17 Type of Consultation: Endocrinology Reason for Consultation T2DM prior to Referring Provider: JENNY PASCAL MD 24 HR Interval Summary Constitutional: improved, no complaints Detailed Summary Respiratory: no complaints Cardiovascular: no complaints Gastrointestinal: no complaints Genitourinary: no complaints Musculoskeletal: no complaints Neurologic: no complaints Exam/Review of Systems Vital Signs Vitals VS - Last 72 Hours, by Label Date Time Temp Pulse Resp B/P Pulse Ox O2 Delivery O2 Flow Rate FiO2 04/15/17 04:05 98.6 68 18 111/57 Room Air 04/14/17 20:05 98.1 69 18 117/58 Room Air 04/14/17 16:00 98.0 74 18 118/68 Room Air 04/14/17 08:00 98.9 70 18 110/57 Room Air 04/14/17 03:30 98.1 70 20 100/60 Room Air 04/13/17 20:00 97.9 77 18 135/65 Room Air 04/13/17 16:00 98.2 84 18 125/57 Room Air 04/13/17 08:21 98.3 76 18 115/56 Room Air 04/13/17 04:10 98.8 70 18 110/55 Room Air 04/13/17 00:00 98.6 68 18 111/60 Room Air 04/12/17 19:40 98.5 60 18 112/55 98 Room Air 04/12/17 16:00 98.0 57 18 102/45 Room Air 04/12/17 14:00 54 18 110/47 Room Air 04/12/17 13:00 53 16 117/48 Room Air 04/12/17 12:30 97.8 55 17 107/46 Room Air Vital Signs Date Time Temp Pulse Resp B/P Pulse Ox O2 Delivery O2 Flow Rate FiO2 04/15/17 04:05 98.6 68 18 111/57 Room Air 04/12/17 19:40 98 Exam Constitutional: alert, obese, oriented Psych: nl mood/affect, no complaints Respiratory: clear to auscultation, normal air movement Cardiovascular: nl pulses, regular rate and rhythm, No edema, No murmurs/extra sounds, No rub Gastrointestinal: bowel sounds, nl liver, spleen, non-tender, soft, No mass, No rebound or guarding Musculoskeletal: nl extremities to inspection Extremities: normal pulses, No clubbing, No cyanosis, No edema Neurological: RN PATIENT SERVICES II-XII intact, nl mental status, nl speech, nl strength Additional Comments Bedside Glucose - 72 Hours Test 04/12/17 21:26 04/13/17 07:52 04/13/17 10:40 04/13/17 12:34 Bedside Glucose 82mg/dL (70-220) 90mg/dL (70-220) 156mg/dL (70-220) 105mg/dL (70-220) Test 04/13/17 14:52 04/13/17 17:39 04/13/17 20:14 04/14/17 01:59 Bedside Glucose 108mg/dL (70-220) 106mg/dL (70-220) 149mg/dL (70-220) 128mg/dL (70-220) Test 04/14/17 08:07 04/14/17 10:32 04/14/17 12:41 04/14/17 14:48 Bedside Glucose 86mg/dL (70-220) 105mg/dL (70-220) 98mg/dL (70-220) 135mg/dL (70-220) Test 04/14/17 17:59 04/14/17 20:13 04/15/17 08:15 Bedside Glucose 84mg/dL (70-220) 104mg/dL (70-220) 84mg/dL (70-220) Results Result Diagram: 04/13/17 0730 04/12/17 0536 Results 24 hrs Laboratory Tests Test 04/14/17 12:41 04/14/17 14:48 04/14/17 17:59 04/14/17 20:13 Bedside Glucose 98 135 84 104 Test 04/15/17 08:15 Bedside Glucose 84 Medications Medications Current Medications Insulin Glargine (Lantus) 8 unit BID@08,20 SC Last administered on 04/15/17 09 :46; Admin Dose 8 UNIT; Start 04/12/17 at 20:00 Diagnostic Test (Pha) (Accu-Chek) 1 ea 02 XX Last administered on 04/14/17 01: 59; Admin Dose 1 EA; Start 04/13/17 at 02:00 Miscellaneous Information 1 ea NOTE XX ; Start 04/12/17 at 12:30 Glucose (Glutose) 15 gm Q15M PRN PO DECREASED GLUCOSE; Start 04/12/17 at 12:30 Glucose (Glutose) 22.5 gm Q15M PRN PO DECREASED GLUCOSE; Start 04/12/17 at 12: 30 Dextrose (D50w Syringe) 25 ml Q15M PRN IV DECREASED GLUCOSE; Start 04/12/17 at 12:30 Dextrose (D50w Syringe) 50 ml Q15M PRN IV DECREASED GLUCOSE; Start 04/12/17 at 12:30 Glucagon (Glucagen) 1 mg Q15M PRN IM DECREASED GLUCOSE; Start 04/12/17 at 12:30 Glucose (Glutose) 15 gm Q15M PRN BUCCAL DECREASED GLUCOSE; Start 04/12/17 at 12 :30 Oxycodone/ Acetaminophen (Percocet (5/ 325)) 1 tab Q4H PRN PO PAIN LEVEL 4-6; Start 04/12/17 at 13:30 Oxycodone/ Acetaminophen (Percocet (5/ 325)) 2 tab Q4H PRN PO PAIN LEVEL 7-10 Last administered on 04/15/17 03:13; Admin Dose 2 TAB; Start 04/12/17 at 13:30 Ibuprofen (Motrin) 800 mg Q8 PO Last administered on 04/15/17 05:39; Admin Dose 800 MG; Start 04/13/17 at 14:00 Simethicone (Mylicon) 160 mg Q8H PRN PO DISTENSION/GAS/BLOATING; Start at 13:30 Senna/Docusate Sodium 1 tab 1 tab BID PO Last administered on 04/15/17 08:56; Admin Dose 1 TAB; Start 04/12/17 at 21:00 Oxytocin/Lactated Ringer's 500 ml @ 0 mls/hr ONCE PRN IV For Hemorrhage Management; Start 04/12/17 at 13:30 Methylergonovine Maleate (Methergine) 0.2 mg ONCE PRN IM VAGINAL BLEEDING; Start 04/12/17 at 13:30 Carboprost Tromethamine (Hemabate) 250 mcg ONCE PRN IM VAGINAL BLEEDING; Start 04/12/17 at 13:30 Misoprostol (Cytotec) 1,000 mcg ONCE PRN [place] VAGINAL BLEEDING; Start 04/12/17 at 13:30 JOSE ROMAN MD April 15, 2017 11:13
--- NOTE | 2017-04-15 13:33 | PD.PPDC ---
TURN OUT Discharge Instruction Condition Patient Condition: Good Diet Diet: Resume Regular Diet Activity/Restrictions Activity: Bedrest May be up to bathroom May be up for meals May Shower Restrictions: No Exercising No Lifting No Driving Minimize Walking Minimize Stair-climbing No Sexual Activity Nothing in the Vagina No [place] No Tampons, douche Wound/Drain Care Instructions Wound/Drain Care Instructions: Wash with soap and water Keep clean and dry Follow-up Follow-up with Physician: 3, Day/Days Provider Information: Dr Gomez Return to clinic for MATERNAL CHILD NURSE Instructions: Fever greater than 101 Chills Worsening abdominal pain Excessive Vaginal Bleeding OB Instructions: Breast Tenderness Depression Surgical Instructions: Incisional Drainage Incisional Redness NEAL CHAVIS MD April 15, 2017 13:33
[2017-04-15] MEDS ORDERED: Oxycodone/Acetamin (5/325) PO (13:34)
[2017-04-15] MEDS ORDERED: IBUP800T25 PO (13:34)
--- NOTE | 2017-04-15 13:36 | DS ---
Date/Time of Note Date/Time of Note DATE: 04/15/17 TIME: 13:35 Obstetrical Discharge Record Final Diagnosis Final Diagnosis: Term delivered Section Section: Repeat Complications Gestational Diabetes Augmentation: No Induction: No Condition on Discharge Physical Assessment Last Vitals: T=98.0 BP 128/78 Voiding: Yes Bowel Movement: Yes Breast: Filling Fundus: Firm Abdomen and Incision: Dry intact with a very large pannus. Marcia present. No evidence of infection. Calf Tenderness: No Patient Condition: Good NEAL CHAVIS MD April 15, 2017 13:36
[2017-04-15 16:10] VITALS: BP 137/61; PULSE 74; RESP 16
== END 2017-04-15 17:30 | disposition home or self-care (01) | DRG 765 ==
LOC: L-D 05:00 → PP1 12:28
PROVIDERS: ADMIT Obstetrics & Gynecology; ATTEND Obstetrics & Gynecology
PROC: 0UB70ZZ Excision of Bilateral Fallopian Tubes, Open Approach (ICD-10-PCS; 2017-04-12)
PROC: 10D00Z1 Extraction of Products of Conception, Low, Open Approach (ICD-10-PCS; principal; 2017-04-12 07:30)
DX: O24.12 Pre-existing type 2 diabetes mellitus, in childbirth (principal); Z68.42 Body mass index [BMI] 45.0-49.9, adult; O34.211 Maternal care for low transverse scar from previous cesarean delivery; O99.214 Obesity complicating childbirth; E66.9 Obesity, unspecified; E11.9 Type 2 diabetes mellitus without complications; E78.5 Hyperlipidemia, unspecified; Z3A.39 39 weeks gestation of pregnancy; Z37.0 Single live birth; Z30.2 Encounter for sterilization
CPT/HCPCS: 82728; 82947; 82962; 83036; 83540; 85025; 85610; 85730; 86592; 86803; 86850; 86900; 86901; 87340; 88302; 90715; 99464; J0690; J1815; J1885; J2274; J2370; J2405; J2590; J3010; J7120